=== PATIENT | female | born 1995 | race African-American/Black ===

== ENCOUNTER 2017-04-15 14:18 | Emergency (ER) | payer OTHER ==
[2017-04-15] MEDS ORDERED: NORMAL SALINE 1000 ML 1,000 ML IV ONE ×2 (14:44→19:59)
[2017-04-15] MEDS ORDERED: ONDANSETRON HCL INJ/PF 4 MG/2 ML SDV IV ONE (14:44)
[2017-04-15] MEDS ORDERED: KETOROLAC TROMETHAMINE INJ/PF 30 MG/1 ML SDV IV ONE (14:45)
--- NOTE | 2017-04-15 14:47 | ER Document Report ---
ED Medical Screen (RME) - General Chief Complaint: Abdominal Pain Stated Complaint: ABDOMINAL PAIN Time Seen by Provider: 04/15/17 14:32 Notes: Patient reports bilateral abdominal pain with nausea vomiting as well as cough cold and congestion TRAVEL OUTSIDE OF THE [place] IN LAST 30 DAYS: No - Related Data Allergies/Adverse Reactions: No Known Allergies Allergy (Unverified 04/15/17 14:33) Home Medications: Current Home Medications No Home Medications 04/15/17 [History] Past Medical History - Social History Chew tobacco use (# tins/day): No Frequency of alcohol use: Occasional Drug Abuse: None Renal/ Medical History: Denies: Hx Peritoneal Dialysis Physical Exam - Vital signs Vitals: Temp Pulse Resp BP Pulse Ox 98.3 F 123 H 14 120/67 97 04/15/17 14:24 04/15/17 14:24 04/15/17 14:24 04/15/17 14:24 04/15/17 14:24 Course - Vital Signs Vital signs: Temp Pulse Resp BP Pulse Ox 98.3 F 123 H 14 120/67 97 04/15/17 14:24 04/15/17 14:24 04/15/17 14:24 04/15/17 14:24 04/15/17 14:24
[2017-04-15 15:57] LABS: ABSOLUTE EOSINOPHILS # (AUTO) 0.1 10^3/uL (0.0-0.6); ABSOLUTE MONOCYTES (AUTO) 1.2 10^3/uL (0.1-1.4); ABSOLUTE NEUT (AUTO) 13.1 10^3/uL (1.7-8.2); BASOPHILS % (AUTO) 0.2 % (0-2); EOSINOPHILS % (AUTO) 0.6 % (0-6); HEMATOCRIT 38.6 % (36.0-47.0); HEMOGLOBIN 12.8 g/dL (12.0-15.5); LYMPHOCYTES % (AUTO) 6.7 % (13-45); MEAN CORPUSCULAR HEMOGLOBIN 28.9 pg (27.0-33.4); MEAN CORPUSCULAR HGB CONC 33.1 g/dL (32.0-36.0); MEAN CORPUSCULAR VOLUME 87 fl (80-97); MONOCYTES % (AUTO) 7.6 % (3-13); PLATELET COUNT 259 10^3/uL (150-450); RED BLOOD COUNT 4.43 10^6/uL (3.72-5.28); RED CELL DISTRIBUTION WIDTH 13.4 % (11.5-14.0); SEGMENTED NEUTROPHILS % (AUTO) 84.9 % (42-78); TOTAL CELLS COUNTED % (AUTO) 100 %; WHITE BLOOD COUNT 15.4 10^3/uL (4.0-10.5)
[2017-04-15 15:59] LABS: VENOUS BLOOD BASE EXCESS -2.3 mmol/L; VENOUS BLOOD HCO3 23.3 mmol/L (20-32); VENOUS BLOOD PCO2 42.9 mmHg (35-63); VENOUS BLOOD PH 7.35 (7.30-7.42)
[2017-04-15 16:07] LABS: APPEARANCE,URINE CLEAR; BILIRUBIN,URINE NEGATIVE (NEGATIVE); COLOR,URINE YELLOW; GLUCOSE, URINE NEGATIVE (NEGATIVE); KETONES,URINE TRACE mg/dL (NEGATIVE); LEUKOCYTE ESTERASE,URINE NEGATIVE (NEGATIVE); NITRITE,URINE NEGATIVE (NEGATIVE); PROTEIN,URINE NEGATIVE (NEGATIVE); URINE SPECIFIC GRAVITY 1.027
[2017-04-15 16:15] LABS: ALANINE AMINOTRANSFERASE 26 U/L (9-52); ALBUMIN 4.6 g/dL (3.5-5.0); ALKALINE PHOSPHATASE 58 U/L (38-126); ANION GAP 12 (5-19); ASPARTATE AMINO TRANSFERASE 20 U/L (14-36); BILIRUBIN,DIRECT 0.3 mg/dL (0.0-0.4); BILIRUBIN,TOTAL 0.8 mg/dL (0.2-1.3); BLOOD UREA NITROGEN 11 mg/dL (7-20); CALCIUM 9.9 mg/dL (8.4-10.2); CARBON DIOXIDE 25 mmol/L (22-30); CHLORIDE 104 mmol/L (98-107); GLUCOSE 93 mg/dL (75-110); SODIUM 140.8 mmol/L (137-145)
--- NOTE | 2017-04-15 17:05 | RADIOLOGY REPORT (SQ) ---
EXAM DESCRIPTION: CHEST PA/LAT COMPLETED DATE/TIME: 04/15/2017 4:55 pm REASON FOR STUDY: cough/congest COMPARISON: None. EXAM PARAMETERS: NUMBER OF VIEWS: two views TECHNIQUE: Digital Frontal and Lateral radiographic views of the chest acquired. RADIATION DOSE: NA LIMITATIONS: none FINDINGS: LUNGS AND PLEURA: No opacities, masses or pneumothorax. No pleural effusion. MEDIASTINUM AND HILAR STRUCTURES: No masses or contour abnormalities. HEART AND VASCULAR STRUCTURES: Heart normal size. No evidence for failure. BONES: Moderate scoliosis. No acute findings. HARDWARE: None in the chest. OTHER: No other significant finding. IMPRESSION: MODERATE SCOLIOSIS. NO ACUTE CARDIOPULMONARY PROCESS. TECHNICAL DOCUMENTATION: JOB ID: [id number] [employer]- All Rights Reserved
--- NOTE | 2017-04-15 19:46 | ER Document Report ---
ED GI/ - General Chief Complaint: Abdominal Pain Stated Complaint: ABDOMINAL PAIN Time Seen by Provider: 04/15/17 14:32 Mode of Arrival: Ambulatory Information source: Patient TRAVEL OUTSIDE OF THE [place] IN LAST 30 DAYS: No - HPI Notes: 04/15/17 20:28 22-year-old lady with past medical history of irregular cycles as well as menorrhagia and dysmenorrhea who presented today for evaluation of lower abdominal pain. Patient reported that she started having her cycle yesterday and since then has been having worsening abdominal pain described as cramping, constant, localized to the bilateral lower quadrants, severity of symptoms is 10 out of 10. Patient took Tylenol as well as Motrin with no significant improvement of her symptoms. Patient denies any fevers, chills, nausea or vomiting. Patient does have vaginal bleeding today with approximately already changed of 8 tampons. Patient denies any recent sexual activity or prior history of sexual transmitted infection. - Related Data Allergies/Adverse Reactions: No Known Allergies Allergy (Unverified 04/15/17 14:33) Past Medical History - General Information source: Patient - Social History Smoking Status: Never Smoker Chew tobacco use (# tins/day): No Frequency of alcohol use: Occasional Drug Abuse: None Family History: Reviewed & Not Pertinent Patient has suicidal ideation: No Patient has homicidal ideation: No Renal/ Medical History: Denies: Hx Peritoneal Dialysis Review of Systems - Review of Systems Notes: REVIEW OF SYSTEMS: CONSTITUTIONAL: -fevers, -chills EENT: -eye pain, -difficulty swallowing, -nasal congestion CARDIOVASCULAR: -chest pain, -syncope. RESPIRATORY: -cough, -SOB GASTROINTESTINAL: + Abdominal pain, -nausea, -vomiting, -diarrhea GENITOURINARY: -dysuria, -hematuria. + Vaginal bleeding MUSCULOSKELETAL: +back pain, -neck pain SKIN: -rash or skin lesions. HEMATOLOGIC: -easy bruising or bleeding. LYMPHATIC: -swollen, enlarged glands. NEUROLOGICAL: -altered mental status or loss of consciousness, -headache, - neurologic symptoms PSYCHIATRIC: -anxiety, -depression. ALL OTHER SYSTEMS REVIEWED AND NEGATIVE. Physical Exam - Vital signs Vitals: Temp Pulse Resp BP Pulse Ox 98.3 F 123 H 14 120/67 97 04/15/17 14:24 04/15/17 14:24 04/15/17 14:24 04/15/17 14:24 04/15/17 14:24 - Notes Notes: Reviewed vital signs and nursing note as charted by RN. CONSTITUTIONAL: Alert and oriented HEAD: Normocephalic; atraumatic EYES: PERRL; Conjunctivae clear, sclerae non-icteric ENT: normal nose; no rhinorrhea; moist mucous membranes; pharynx without lesions noted NECK: Supple without meningismus; non-tender; no cervical lymphadenopathy, no masses CARD: Tachycardia, no murmurs, no clicks, no rubs, no gallops; symmetric distal pulses RESP: Normal chest excursion without splinting or tachypnea; breath sounds clear and equal bilaterally ABD/GI: Normal bowel sounds; non-distended; rigid, tenderness to palpation throughout the abdomen BACK: The back appears normal and is non-tender to palpation EXT: Normal ROM in all joints; non-tender to palpation; no cyanosis, no effusions, no edema SKIN: Normal color for age and race; warm; dry; good turgor; capillary refill < 2 seconds; no acute lesions noted NEURO: .Cranial nerves 3-12 intact. Motor strength 5/5 bilaterally. Sensation intact to touch bilaterally. No pronator drift. Finger to nose intact bilaterally PSYCH: The patient's mood and manner are appropriate. Grooming and personal hygiene are appropriate. Course - Re-evaluation Re-evalutation: 04/15/17 20:00 22-year-old with vaginal bleeding as well as lower abdominal pain Differential diagnoses includes menorrhagia, dysmenorrhea, possible intra- abdominal infection such as appendicitis, small bowel obstruction, acute cystitis, pyelonephritis, , ectopic will obtain basic lab work including CBC, CMP, urinalysis, urine test We will give patient IV Toradol as well as IV fluids Reassess Reassessment 8:30 PM Patient has persistent pain despite of medications, patient has leukocytosis, high concern for possible intra-abdominal infection We will obtain CT scan of her abdomen and pelvis with contrast We will continue IV fluids as well as pain management with morphine Reassess 04/15/17 21:53 Reassessment 9:[address] scan does not show any acute intra-abdominal infection, perforation or any other surgical condition Patient does have multiple ovarian cysts At this point will obtain pelvic ultrasound to rule out hemorrhagic cyst versus torsion Continue pain management Reassess patient 01/16/18 00:44 Reassessment 12:40 AM Ultrasound with large bilateral ovarian cysts, no obvious torsion I have consulted [facility] e commerce solution architect, Dr. 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 - Vital Signs Vital signs: Temp Pulse Resp BP Pulse Ox 99.1 F 102 H 18 116/67 100 04/15/17 20:00 04/15/17 20:00 04/15/17 20:00 04/15/17 20:00 04/15/17 20:00 - Laboratory Result Diagrams: 04/15/17 15:35 04/15/17 15:35 Laboratory results interpreted by me: 04/15/17 04/15/17 15:35 15:35 WBC 15.4 H Seg Neutrophils % 84.9 H Lymphocytes % 6.7 L Absolute Neutrophils 13.1 H Urine Ketones TRACE H Urine Blood MODERATE H Urine Urobilinogen 4.0 H Discharge - Discharge Clinical Impression: Ovarian cyst, Pelvic pain Condition: Stable Disposition: HOME, SELF-CARE Instructions: Ovarian Cyst ([facility]) Additional Instructions: Please come back if you have worsening abdominal pain, nausea vomiting, fevers or chills Please avoid strenuous physical activity until you are cleared by [facility] doctors Please take your pain medications as prescribed Please follow-up with Dr. Jean, [facility] in 24-48 hours Prescriptions: Hydrocodone/Acetaminophen [[place] 5-325 mg Tabs (6 Tab/ER Disp)] 1 tab PO Q4 6 Days Ibuprofen [Motrin 600 Mg Tablet] 600 mg PO TID #15 tablet Referrals: NICHOLAS JEAN MD [ACTIVE STAFF] - Follow up as needed
[2017-04-15] MEDS ORDERED: MORPHINE SULFATE 10 MG/ML INJ IV ONE ×2 (20:01→21:54)
[2017-04-15 20:16] VITALS: BP 116/67
--- NOTE | 2017-04-15 20:42 | RADIOLOGY REPORT (SQ) ---
EXAM DESCRIPTION: CT ABD/PELVIS WITH IV ONLY COMPLETED DATE/TIME: 04/15/2017 8:31 pm REASON FOR STUDY: abdominal pain, leukocytosis, generalized COMPARISON: None. TECHNIQUE: CT scan of the abdomen and pelvis performed using helical scanning technique with dynamic intravenous contrast injection. No oral contrast. Images reviewed with lung, soft tissue, and bone windows. Reconstructed coronal and sagittal MPR images reviewed. Delayed images for evaluation of the urinary system also acquired. All images stored on PACS. All CT scanners at this facility use dose modulation, iterative reconstruction, and/or weight based d osing when appropriate to reduce radiation dose to as low as reasonably achievable (ALARA). [facility]: Dose Right [facility]: CareDose [facility]: Dose Right [facility]: Teradose 4D [facility]: [employer] CONTRAST TYPE AND DOSE: contrast/concentration: Isovue 370.00 mg/ml; Total Contrast Delivered: 64.0 ml; Total Saline Delivered: 40.1 ml RENAL FUNCTION: BUN 11 creatinine 0.72. RADIATION DOSE: CT Rad equipment meets quality standard of care and radiation dose reduction techniq ues were employed. CTDIvol: 4.9 - 5.4 mGy. DLP: 514 mGy-cm.. LIMITATIONS: None. FINDINGS: LOWER CHEST: No significant findings. No nodules or infiltrates. LIVER: Normal size. No masses. No dilated ducts. SPLEEN: Normal size. No focal lesions. PANCREAS: No masses. No significant calcifications. No adjacent inflammation or peripancreatic fluid collections. Pancreatic duct not dilated. GALLBLADDER: No identified stones by CT criteria. No inflammatory changes to suggest cholecystitis. ADRENAL GLANDS: No significant masses or asymmetry. RIGHT KIDNEY AND URETER: No solid masses. No significant calcifications. Duplicated collecting sy stem and ureter. No hydronephrosis or hydroureter. LEFT KIDNEY AND URETER: No solid masses. No significant calcifications. No hydronephrosis or hydr oureter. AORTA AND VESSELS: No aneurysm. No dissection. Renal arteries, SMA, celiac without stenosis. RETROPERITONEUM: No retroperitoneal adenopathy, hemorrhage or masses. BOWEL AND PERITONEAL CAVITY: No masses or inflammatory changes. No free fluid or peritoneal masses. APPENDIX: Not visualized. PELVIS: Large cystic lesions, on the right measuring 5 x 9 cm and on the left measuring 5 x 6 cm. Th e left side lesion is complex with septations and solid components. No free fluid. Normal bladder. ABDOMINAL WALL: No masses. No hernias. BONES: No significant or acute findings. OTHER: No other significant finding. IMPRESSION: 1. LARGE CYSTIC LESIONS IN THE PELVIS PRESUMABLY OVARIAN. LEFT-SIDED LESION APPEARS COMPLEX. 2. NO OTHER SIGNIFICANT OR ACUTE FINDING IN THE ABDOMEN OR PELVIS ON CT SCAN WITH IV CONTRAST. TECHNICAL DOCUMENTATION: JOB ID: [id number] Quality ID # [id number]: Final reports with documentation of one or more dose reduction techniques (e.g., Au tomated exposure control, adjustment of the mA and/or kV according to patient size, use of iterative reconstruction technique) 2010 [employer]- All Rights Reserved
--- NOTE | 2017-04-15 23:43 | RADIOLOGY REPORT (SQ) ---
EXAM DESCRIPTION: U/S NON OB PEL TV W/DOPPLER CLINICAL HISTORY: 22 years, Female, ovarian torsion, hemorrhagic cyst LMP: 04/14/2018. COMPARISON: CT, same day. TECHNIQUE: Transvaginal. LIMITATIONS: None. FINDINGS: 9.2 x 7.4 x 6.2 cm complex cystic hypoechoic mass of the right ovary; peripheral vascularity demonstrate. 6.9 x 5.2 x 4.9 cm complex left adnexal lesion; some peripheral vascularity demonstrated. No significant free fluid. 9.2 cm uterus, 0.7 cm endometrial stripe thickness, 3.6 cm cervical length. IMPRESSION: Indeterminate, probably benign bilateral adnexal masses measure 9.2 cm on the right and 6.9 cm on the left. Differential diagnosis includes ovarian neoplasm. The lesions are at risk for ovarian torsion. Recommend MRI with IV contrast and/or COOK HELPER PASTRY surgical evaluation. 2011 [employer]- All Rights Reserved
[2017-04-16] MEDS ORDERED: HYDROCODONE/ACETAMINOPHEN 5-325 MG (6 TAB/ER DISP) PO PRN (01:25)
== END 2017-04-16 01:35 | disposition home or self-care (01) ==
LOC: ER 14:18
DX: N83.202 Unspecified ovarian cyst, left side (principal); N83.201 Unspecified ovarian cyst, right side; D72.829 Elevated white blood cell count, unspecified; R10.2 Pelvic and perineal pain
CPT/HCPCS: 96376; 99284; 96361; 96374; 96375; 36415; 87040; 87086; 85025; 81025; 80053; 81001; 82803; 83605; 71046; 76830; 93976; 74177; J1885; J2270; J2405; J7030

== ENCOUNTER → 2017-05-03 | Outpatient (CLI) | payer OTHER ==
--- NOTE | 2017-05-03 14:57 | WOMENS IMAGING REPORT ---
EXAM DESCRIPTION: U/S PELVIS NON-OB LIMITED; TRANSVAGINAL ULTRASOUND COMPLETED DATE/TIME: 05/03/2017 2:32 pm REASON FOR STUDY: SALPINGITIS AND OOPHORITIS N70.93 SALPINGITIS AND OOPHORITIS, UNSPECIFIED COMPARISON: CT abdomen pelvis 04/15/2017 Pelvic ultrasound 04/15/2017 TECHNIQUE: Dynamic and static grayscale images acquired of the pelvis via transabdominal and transva ginal approach and recorded on PACS. Additional selected color Doppler and spectral images recorded. LIMITATIONS: None. FINDINGS: UTERUS: Contour normal. No mass. Uterus measures 7.8 x 3.6 x 5.0 cm in size. ENDOMETRIAL STRIPE: No focal or generalized thickening. No masses. Endometrial stripe 17 mm in thick ness CERVIX: No nabothian cysts. RIGHT OVARY: The right ovary measures 5.6 x 4.7 x 2.7 cm in size. There is a 3 x 1.5 cm cyst, and 1. 7 x 1.4 cm cyst, significantly smaller than on prior studies from 04/15/2017. RIGHT OVARY DOPPLER: Normal right ovary color flow. LEFT OVARY: Left ovary measures 6.5 x 4 x 5.1 cm in size. There is a mixed echogenicity complex cyst probably a hemorrhagic cyst, measuring 2.5 x 2.6 cm. A second mixed echogenicity probable hemorrhag ic cyst is present measuring 3.7 x 2 cm in size. LEFT OVARY DOPPLER: Normal left ovary color flow. FREE FLUID: None noted. OTHER: No other significant finding. IMPRESSION: Decrease in size of right ovarian cysts compared to studies from 04/15/2017. Decrease in size of probable left ovarian hemorrhagic cysts, compared to studies from 04/15/2017. TECHNICAL DOCUMENTATION: JOB ID: [id number] [email or web address]- All Rights Reserved
== END ==
LOC: WI 06:57
PROVIDERS: ATTEND Nurse Practitioner
DX: N70.93 Salpingitis and oophoritis, unspecified (principal); N83.292 Other ovarian cyst, left side; N83.291 Other ovarian cyst, right side
CPT/HCPCS: 76830; 76857

== ENCOUNTER 2018-12-09 11:07 | Emergency (ER) | payer OTHER ==
[2018-12-09] MEDS ORDERED: DIPHENHYDRAMINE HCL 25 MG CAPSULE PO ONE (12:28)
[2018-12-09] MEDS ORDERED: FAMOTIDINE 20 MG TABLET PO ONE (12:28)
[2018-12-09] MEDS ORDERED: PREDNISONE 20 MG TABLET PO ONE (12:28)
--- NOTE | 2018-12-09 12:32 | ER Document Report ---
ED Medical Screen (RME) - General Chief Complaint: Allergic Reaction Stated Complaint: POSSIBLE ALLERGIC REACTION Time Seen by Provider: 12/09/18 12:24 Primary Care Provider: LEMUEL FONG NP [Primary Care Provider] - Follow up as needed Mode of Arrival: Ambulatory Information source: Patient Notes: Patient is an otherwise healthy 23-year-old female presenting with multiple complaints today. Patient reports she believes she is having an allergic reaction. She is unsure what she could be allergic to. She reports yesterday she had lip swelling and swelling of the right side of her face. She reports she took Benadryl and the symptoms resolved. She states this morning she woke up again feeling like her lip was swelling. She also complains of sore throat and chills. She reports mild difficulty swallowing. She is speaking in full complete sentences and swallowing her secretions without difficulty. Exam: Mild bilateral tonsillar swelling without exudates. No obvious lip swelling noted on exam. I have greeted and performed a rapid initial assessment of this patient. A comprehensive ED assessment and evaluation of the patient, analysis of test re sults and completion of the medical decision making process will be conducted by additional ED providers. I have specifically instructed the patient or family members with the patient to immediately return to any nursing staff should anything change in the patient's condition or with their chief complaint. This medical record was dictated with voice recognizing software. There may be grammatical, syntax errors that are unintended. TRAVEL OUTSIDE OF THE [place] IN LAST 30 DAYS: No - Related Data Allergies/Adverse Reactions: No Known Allergies Allergy (Verified 12/09/18 11:08) Past Medical History Renal/ Medical History: Denies: Hx Peritoneal Dialysis Physical Exam - Vital signs Vitals: Temp Pulse Resp BP Pulse Ox 99.4 F 94 16 107/70 97 12/09/18 11:13 12/09/18 11:13 12/09/18 11:13 12/09/18 11:13 12/09/18 11:13 Course - Vital Signs Vital signs: Temp Pulse Resp BP Pulse Ox 99.4 F 94 16 107/70 97 12/09/18 11:13 12/09/18 11:13 12/09/18 11:13 12/09/18 11:13 12/09/18 11:13 Doctor's Discharge - Discharge Referrals: LEMUEL FONG NP [Primary Care Provider] - Follow up as needed
--- NOTE | 2018-12-09 14:32 | ER Document Report ---
ED General - General Chief Complaint: Allergic Reaction Stated Complaint: POSSIBLE ALLERGIC REACTION Time Seen by Provider: 12/09/18 12:24 Primary Care Provider: LEMUEL FONG NP [Primary Care Provider] - Follow up as needed Mode of Arrival: Ambulatory TRAVEL OUTSIDE OF THE [place] IN LAST 30 DAYS: No - HPI Notes: patient states she is having an allergic reaction. She states that yesterday she noticed that her throat was hurting and she felt that her lips were swollen. She states that she felt got worse today so she came to the hospital. She does have pain in the back of her throat. It is worse with swallowing and better with rest. It is moderate. It is intermittent. It does not radiate. She has had some fevers and chills. No sinus congestion or cough. No rashes. No trouble breathing. She denies any new exposures. - Related Data Allergies/Adverse Reactions: No Known Allergies Allergy (Verified 12/09/18 11:08) Past Medical History - General Information source: Patient - Social History Smoking Status: Never Smoker Chew tobacco use (# tins/day): No Frequency of alcohol use: Social Drug Abuse: None Family History: Reviewed & Not Pertinent Patient has suicidal ideation: No Patient has homicidal ideation: No Renal/ Medical History: Denies: Hx Peritoneal Dialysis Review of Systems - Review of Systems Constitutional: Chills, Fever, Malaise Cardiovascular: denies: Chest pain, Syncope Respiratory: denies: Cough, Short of breath Gastrointestinal: denies: Diarrhea, Vomiting -: Yes All other systems reviewed and negative Physical Exam - Vital signs Vitals: Temp Pulse Resp BP Pulse Ox 99.4 F 94 16 107/70 97 12/09/18 11:13 12/09/18 11:13 12/09/18 11:13 12/09/18 11:13 12/09/18 11:13 Interpretation: Normal - General General appearance: Appears well, Alert - HEENT Head: Normocephalic, Atraumatic Eyes: Normal Pupils: PERRL Mouth/Lips: Normal Mucous membranes: Normal Pharynx: Erythema, Other - Right tonsil is erythematous and hypertrophied. It does have several lesions that appear most consistent with a viral stomatitis. The lesions do not look white or exudative. It does not appear consistent with mono or strep classically. It does seem to be more of a viral lesion. - Respiratory Respiratory status: No respiratory distress Chest status: Nontender Breath sounds: Normal Chest palpation: Normal - Cardiovascular Rhythm: Regular Heart sounds: Normal auscultation Murmur: No - Abdominal Inspection: Normal Distension: No distension Bowel sounds: Normal Tenderness: Nontender Organomegaly: No organomegaly - Back Back: Normal, Nontender - Extremities General upper extremity: Normal inspection, Nontender, Normal color, Normal ROM, Normal temperature General lower extremity: Normal inspection, Nontender, Normal color, Normal ROM, Normal temperature, Normal weight bearing. No: Jazmine's sign - Neurological Neuro grossly intact: Yes Cognition: Normal Orientation: AAOx4 [place] Coma Scale Eye Opening: Spontaneous Amy Coma Scale Verbal: Oriented Amy Coma Scale Motor: Obeys Commands [place] Coma Scale Total: 15 Speech: Normal Motor strength normal: LUE, RUE, LLE, RLE Sensory: Normal - Psychological Associated symptoms: Normal affect, Normal mood - Skin Skin Temperature: Warm Skin Moisture: Dry Skin Color: Normal Course - Re-evaluation Re-evalutation: 12/09/18 14:34 Patient's lesions on the right tonsil do appear most consistent with a viral stomatitis of the tonsil. They are not white or exudative such as classically seen with strep or mono. However in the off chance that these are bacterial I will place the patient on antibiotics. - Vital Signs Vital signs: Temp Pulse Resp BP Pulse Ox 99.4 F 94 16 107/70 97 12/09/18 11:13 12/09/18 11:13 12/09/18 11:13 12/09/18 11:13 12/09/18 11:13 - Laboratory Laboratory results interpreted by me: 12/09/18 14:27 Laboratory 12/09/18 12:27 Group A Strep Rapid NEGATIVE Discharge - Discharge Clinical Impression: Tonsillitis with exudate Condition: Stable Disposition: HOME, SELF-CARE Instructions: Tonsillitis ([facility]) Additional Instructions: Call your provider first thing in the morning to arrange for a recheck Prescriptions: Amoxicillin 1 tab PO TID #30 tab Tramadol HCl [Ultram] 50 mg PO Q6 PRN 3 Days #12 tablet PRN Reason: Referrals: LEMUEL FONG NP [Primary Care Provider] - Follow up as needed
[2018-12-09 15:17] VITALS: BP 102/57
== END 2018-12-09 15:20 | disposition home or self-care (01) ==
LOC: ER 11:07
DX: J03.90 Acute tonsillitis, unspecified (principal); R50.9 Fever, unspecified; R53.81 Other malaise
CPT/HCPCS: 99283; 87070; 87880; J7512

== ENCOUNTER 2018-12-18 00:45 | Emergency (ER) | payer OTHER ==
[2018-12-18 01:45] LABS: APPEARANCE,URINE CLEAR; BILIRUBIN,URINE NEGATIVE (NEGATIVE); COLOR,URINE STRAW; GLUCOSE, URINE NEGATIVE (NEGATIVE); KETONES,URINE NEGATIVE (NEGATIVE); LEUKOCYTE ESTERASE,URINE NEGATIVE (NEGATIVE); NITRITE,URINE NEGATIVE (NEGATIVE); PROTEIN,URINE NEGATIVE (NEGATIVE); UROBILINOGEN,URINE NEGATIVE mg/dL (<2.0)
--- NOTE | 2018-12-18 02:05 | ER Document Report ---
HPI - HPI Patient complains to provider of: urinary frequency, vaginal discharge Time Seen by Provider: 12/18/18 02:00 Pain Level: 3 Context: 23 Yr old female patient, with the listed pmh, here for abdominal pain x days. No abdominal surgeries. No history of ovarian cysts, fibroids, endometriosis, or renal stones. Normal bowel movements. No UTI symptoms. No URI symptoms. No recent antibiotics or steroids. No history of diabetes or asthma. No vaginal discharge/complaints/lesions or concerns for STDs and does not want a pelvic exam. No ripping or tearing sensation. Hasn't taken anything for her symptoms. No excessive NSAID use, Tylenol use, or EtOH. No prior history of gallbladder disease, pancreatitis, ulcers, GI bleed, GERD, IBS, Crohn's, or UC. no change in color or caliber or stool. no blood thinners. no fall or trauma. no other associated sx. - REPRODUCTIVE Reproductive: DENIES: : Past Medical History - Social History Smoking Status: Unknown if Ever Smoked Family History: Reviewed & Not Pertinent Patient has suicidal ideation: No Patient has homicidal ideation: No Renal/ Medical History: Denies: Hx Peritoneal Dialysis Vertical Provider Document - CONSTITUTIONAL Notes: >>>> PHYSICAL_EXAM: GENERAL_APPEARANCE: well_nourished, alert, cooperative, no_acute_distress, no_obvious_discomfort. Pleasant, female, smiling, speaking in full sentences, in no sign of pain or resp distress, easily sitting up VITALS: reviewed, see vital signs table. HEAD: normocephalic, atraumatic. no rubio signs. no raccoon eyes. EYES: PERRL, EOMI, (-)scleral icterus. NOSE: no_nasal_discharge. MOUTH: (-)decreased moisture. THROAT: no_tonsilar_inflammation/hypertrophy/exudate NECK: supple, no_neck_tenderness, full rom. full strength. no meningeal signs. no sign of central cord syndrome BACK: no midline_back_tenderness. no step offs or deformities CHEST_WALL: no_chest_tenderness. LUNGS: no_wheezing, (-)accessory muscle use, good air exchange bilateral. HEART: normal_rate, normal_rhythm, ABDOMEN: normal_BS, soft, abdomen-diffuse, non-tender, (-)guarding, (- )rebound, no distension or peritoneal signs. neg murphys. neg mcburneys. no cva tenderness. neg heel strike. neg obturator. neg psoas. neg rovsign. GENITALS: no_ulcers_or_lesions on the genitals, no_lacerations on the genitals, PELVIC: (-)tender uterus, left_and_right adnexa non-tender, (-)CMT, (-)active bleeding, (-)discharge, no_tenderness no cervcicitis, normal os, pt consented to exam. exam without incident. ed nurse __ at bedside during entire exam as senior ui ux designer. RECTAL: deferred EXTREMITIES: strength 5/5 in all_extremities, good pulses in all_extremities, no_edema, no_swelling\tenderness. full rom. normal gait. 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 brisk cap refill. SKIN: warm, dry, good_color, no_rash. no grossly visible overlying skin changes to suggest trauma NEURO: motor_intact, sensory_intact. cranial nerves 2-12 intact, cerebellar fxn intact MENTAL_STATUS: normal_affect, speech_clear, oriented_X_3, responds_appropriately to questions. - INFECTION CONTROL TRAVEL OUTSIDE OF THE [place] IN LAST 30 DAYS: No Course - Re-evaluation Re-evalutation: 12/18/18 04:36 Pt here for . advised to f/u with pcp in 1-2 days. return for any worsening symptoms. vss. well appearing. satting well on ra. neurononfocal. pt understands and agrees to plan. On reexam, pt improved with tx listed. remained stable. nontoxic. well appearing. pain controlled. tolerating po. requesting to go home. case discussed with ER Attending, , who directed and agrees with plan of care and advised no further workup indicated at this time and pt is stable for d c home with close f/u with pcp/specialist. Documentation achieved through voice recording which may lead to some occasional accidental typographical errors. Extensive efforts have been made to proof read documentation to make sure these are the least as possible. Category Date Time Status Pelvic Setup (ED) NOW Care 12/18/18 02:05 Completed [facility] ENDO [facility]HOUSE [MO] Stat Lab 12/18/18 03:30 Received URINE CULTURE [MC] Stat Lab 12/18/18 01:10 Received Urine [HCG QUALITATIVE, URINE] [URIN] Stat Lab 12/18/18 01:10 Completed Urine [URINALYSIS] [URIN] Stat Lab 12/18/18 01:10 Completed WET [place] [MO] Stat Lab 12/18/18 03:30 Completed - Vital Signs Vital signs: Temp Pulse Resp BP Pulse Ox 97.4 F 69 16 107/67 99 12/18/18 00:51 12/18/18 00:51 12/18/18 00:51 12/18/18 00:51 12/18/18 00:51 12/18/18 04:36 Temp Pulse Resp BP Pulse Ox 12/18/18 00:51 97.4 F 69 16 107/67 99 - Laboratory Laboratory results interpreted by me: 12/18/18 01:10 Urine Blood SMALL H 12/18/18 04:36 Labs- Entire Visit 12/18/18 12/18/18 01:10 03:30 Urine Color STRAW Urine Appearance CLEAR Urine pH 7.0 Ur Specific [place]cano 1.010 Urine Protein NEGATIVE Urine Glucose (UA) NEGATIVE Urine Ketones NEGATIVE Urine Blood SMALL H Urine Nitrite NEGATIVE Urine Bilirubin NEGATIVE Urine Urobilinogen NEGATIVE Ur Leukocyte Esterase NEGATIVE Urine WBC (Auto) 1 Urine RBC (Auto) 0 Urine Bacteria (Auto) 3+ Squamous Epi Cells Auto 4 Urine Mucus (Auto) RARE Urine Ascorbic Acid NEGATIVE Urine HCG, Qual NEGATIVE Trichomonas (Wet Prep) NO TRICHOMONAS SEEN Vaginal WBC FEW WBCS SEEN Vaginal RBC NO RBCS SEEN Vaginal Yeast NO YEAST SEEN Discharge - Discharge Clinical Impression: Vaginal discharge Condition: Good Disposition: HOME, SELF-CARE Instructions: Vaginitis ([facility]) Additional Instructions: Follow-up with PCP/CLERICAL PROOFREADER/health department in 1 to 2 days. Return for any worsening symptoms. tylenol or motrin as needed for any pain or fever if not allergic. take the medication as prescribed. we will call you with any abnormal results that require change in plan of care as discussed. no intercourse if you have any symptoms, have your partner tested/treated before engaging in any intercourse. condom use for safe sex. f/u with the health dept for any further desired std testing. Referrals: LEMUEL FONG NP [Primary Care Provider] - Follow up as needed
[2018-12-18 03:49] LABS: RBCS (WET MOUNT) NO RBCS SEEN; T.VAGINALIS (WET MOUNT) NO TRICHOMONAS SEEN; WBCS (WET MOUNT) FEW WBCS SEEN; YEAST (WET MOUNT) NO YEAST SEEN
[2018-12-18] MEDS ORDERED: AZITHROMYCIN 250 MG TABLET PO ONE (04:51)
[2018-12-18] MEDS ORDERED: LIDOCAINE 1% INJ-PF (10 MG/ML) 30 ML SDV NEB ONE (04:51)
[2018-12-18] MEDS ORDERED: CEFTRIAXONE INJ 250 MG VIAL IM ONE (04:51)
[2018-12-18 05:20] VITALS: BP 106/62
[2018-12-18 05:31] LABS: CHLAM PCR NOT DETECTED (NOT DETECT)
== END 2018-12-18 05:36 | disposition home or self-care (01) ==
LOC: ER 00:45
DX: N89.8 Other specified noninflammatory disorders of vagina (principal); R10.9 Unspecified abdominal pain
CPT/HCPCS: 99283; 96374; 87086; 87210; 81025; 81001; 87491; 87591; J3490; J0696

== ENCOUNTER 2019-05-23 18:35 | Emergency (ER) | payer OTHER ==
--- NOTE | 2019-05-23 19:09 | ER Document Report ---
ED Medical Screen (RME) - General Chief Complaint: Abdominal Pain Stated Complaint: ABDOMINAL PAIN Time Seen by Provider: 05/23/19 19:07 Primary Care Provider: LEMUEL FONG NP [Primary Care Provider] - Follow up as needed TRAVEL OUTSIDE OF THE [place] IN LAST 30 DAYS: No - HPI Notes: 05/23/19 19:08 Patient is a 24-year-old female no significant past medical history who presents complaining of mid abdominal pain that rates across her abdomen over the past week that is been relatively constant. The pain does not radiate. Patient states it is not lower pelvic and is not in her upper abdomen. She is able to eat and drink without difficulty. She is urinating normally and having normal bowel movements. Patient is currently on her menstrual cycle. Denies drug allergies. No surgical history to her abdomen. No fever, vomiting, diarrhea. I have treated and performed a rapid initial assessment of this patient. A comprehensive ED assessment and evaluation of the patient, analysis of test results and completion of medical decision making process will be conducted by additional ED providers. PHYSICAL EXAMINATION: GENERAL: Well-appearing, well-nourished and in no acute distress. A&Ox4. Answers questions appropriately. Abdomen: Limited exam in triage, there is mild tenderness noted across the mid abdomen. - Related Data Allergies/Adverse Reactions: No Known Allergies Allergy (Verified 05/23/19 19:01) Past Medical History - Social History Chew tobacco use (# tins/day): No Frequency of alcohol use: Rare Drug Abuse: None Renal/ Medical History: Denies: Hx Peritoneal Dialysis Physical Exam - Vital signs Vitals: Temp Pulse Resp BP Pulse Ox 98.3 F 79 16 104/66 97 05/23/19 18:52 05/23/19 18:52 05/23/19 18:52 05/23/19 18:52 05/23/19 18:52 Course - Vital Signs Vital signs: Temp Pulse Resp BP Pulse Ox 98.3 F 79 16 104/66 97 05/23/19 18:52 05/23/19 18:52 05/23/19 18:52 05/23/19 18:52 05/23/19 18:52 Doctor's Discharge - Discharge Referrals: LEMUEL FONG NP [Primary Care Provider] - Follow up as needed
[2019-05-23 19:48] LABS: ABSOLUTE EOSINOPHILS # (AUTO) 0.2 10^3/uL (0.0-0.6); ABSOLUTE MONOCYTES (AUTO) 0.3 10^3/uL (0.1-1.4); ABSOLUTE NEUT (AUTO) 3.6 10^3/uL (1.7-8.2); BASOPHILS % (AUTO) 0.5 % (0-2); EOSINOPHILS % (AUTO) 3.2 % (0-6); HEMATOCRIT 37.3 % (36.0-47.0); HEMOGLOBIN 12.6 g/dL (12.0-15.5); LYMPHOCYTES % (AUTO) 32.6 % (13-45); MEAN CORPUSCULAR HEMOGLOBIN 29.5 pg (27.0-33.4); MEAN CORPUSCULAR HGB CONC 33.7 g/dL (32.0-36.0); MEAN CORPUSCULAR VOLUME 88 fl (80-97); MONOCYTES % (AUTO) 5.5 % (3-13); PLATELET COUNT 241 10^3/uL (150-450); RED BLOOD COUNT 4.26 10^6/uL (3.72-5.28); RED CELL DISTRIBUTION WIDTH 13.3 % (11.5-14.0); SEGMENTED NEUTROPHILS % (AUTO) 58.2 % (42-78); TOTAL CELLS COUNTED % (AUTO) 100 %; WHITE BLOOD COUNT 6.3 10^3/uL (4.0-10.5)
[2019-05-23 19:51] LABS: APPEARANCE,URINE SLIGHTLY-CLOUDY; BILIRUBIN,URINE NEGATIVE (NEGATIVE); COLOR,URINE YELLOW; GLUCOSE, URINE NEGATIVE (NEGATIVE); KETONES,URINE NEGATIVE (NEGATIVE); PROTEIN,URINE NEGATIVE (NEGATIVE); UROBILINOGEN,URINE NEGATIVE mg/dL (<2.0)
[2019-05-23 20:03] LABS: ALBUMIN 4.3 g/dL (3.5-5.0); ALKALINE PHOSPHATASE 48 U/L (38-126); ANION GAP 8 (5-19); ASPARTATE AMINO TRANSFERASE 29 U/L (14-36); BILIRUBIN,DIRECT 0.3 mg/dL (0.0-0.4); BILIRUBIN,TOTAL 0.5 mg/dL (0.2-1.3); BLOOD UREA NITROGEN 16 mg/dL (7-20); CALCIUM 9.6 mg/dL (8.4-10.2); CARBON DIOXIDE 27 mmol/L (22-30); CHLORIDE 103 mmol/L (98-107); GLUCOSE 134 mg/dL (75-110); POTASSIUM 4.2 mmol/L (3.6-5.0)
[2019-05-23] MEDS ORDERED: PROMETHAZINE HCL 25 MG TABLET PO ONE (21:29)
[2019-05-23] MEDS ORDERED: OXYCODONE-ACETAMINOPHEN 5-325 MG TABLET PO ONE (21:29)
--- NOTE | 2019-05-23 21:31 | ER Document Report ---
ED GI/ - General Chief Complaint: Abdominal Pain Stated Complaint: ABDOMINAL PAIN Time Seen by Provider: 05/23/19 19:07 Primary Care Provider: [facility] [Provider Group] - 05/25/19 Notes: Patient is a 24-year-old female that comes emergency department for chief complaint of abdominal pain. She states this is been going on for most a week but has been more noticeable over the past couple of days, she has also started bleeding vaginally over the past couple of days. She states that she has a history of cysts, she states she had a "complicated one that I had to be transferred to [facility] for and was admitted for 2 weeks". She states she just wants to make sure that she is okay. She denies any surgeries, vaginal discharge, concerns of STD exposure, flank pain, dysuria, fever, nausea, vomit ing. TRAVEL OUTSIDE OF THE [place] IN LAST 30 DAYS: No - Related Data Allergies/Adverse Reactions: No Known Allergies Allergy (Verified 05/23/19 19:01) Past Medical History - General Information source: Patient - Social History Smoking Status: Never Smoker Chew tobacco use (# tins/day): No Frequency of alcohol use: Rare Drug Abuse: None Family History: Reviewed & Not Pertinent Patient has suicidal ideation: No Patient has homicidal ideation: No Renal/ Medical History: Denies: Hx Peritoneal Dialysis Review of Systems - Review of Systems Constitutional: No symptoms reported EENT: No symptoms reported Cardiovascular: No symptoms reported Respiratory: No symptoms reported Gastrointestinal: See HPI Genitourinary: No symptoms reported Female Genitourinary: See HPI Musculoskeletal: No symptoms reported Skin: No symptoms reported Hematologic/Lymphatic: No symptoms reported Neurological/Psychological: No symptoms reported Physical Exam - Vital signs Vitals: Temp Pulse Resp BP Pulse Ox 98.3 F 79 16 104/66 97 05/23/19 18:52 05/23/19 18:52 05/23/19 18:52 05/23/19 18:52 05/23/19 18:52 - Notes Notes: GENERAL: Alert, interacts well. No acute distress. HEAD: Normocephalic, atraumatic. EYES: Pupils equal, round, and reactive to light. Extraocular movements intact. ENT: Oral mucosa moist, tongue midline. Oropharynx unremarkable. Airway patent. LUNGS: Clear to auscultation bilaterally, no wheezes, rales, or rhonchi. No respiratory distress. HEART: Regular rate and rhythm. No murmur ABDOMEN: There is tenderness in the left lower abdomen and pelvic area. This is specific and she winces slightly. However the remaining abdomen is completely unremarkable. GENITOURINARY: Deferred EXTREMITIES: Moves all 4 extremities spontaneously. No edema, normal radial and dorsalis pedis pulses bilaterally. No cyanosis. BACK: no cervical, thoracic, lumbar midline tenderness. No saddle anesthesia, normal distal neurovascular exam. Moves all extremities in full range of motion. NEUROLOGICAL: Alert and oriented x3. Normal speech. Cranial nerves II through XII grossly intact. PSYCH: Normal affect, normal mood. SKIN: Warm, dry, normal turgor. No rashes or lesions noted. Course - Re-evaluation Re-evalutation: Patient indicates the pain is just below her umbilicus when asked about on exam the pain is in her left lower quadrant and pelvic area. Because of her history of cyst which I cannot get specific details about, location of pain, vaginal bleeding, ultrasound was ordered. Patient declines pelvic exam. CBC, chemistry unremarkable. Urinalysis shows some white blood cells but also squamous epithelials. Nonspecific without overt suprapubic tenderness. No flank pain or dysuria. Culture placed. Ultrasound showing complex cyst on the left ovary, possible endometrioma. No torsion. Recommendation is close follow-up. Discussed with patient. Provided with a copy of her report and referral to [facility]. Discussed details and return precautions. Patient states appreciation and agreement. Stable time of discharge. - Vital Signs Vital signs: Temp Pulse Resp BP Pulse Ox 97.5 F 61 15 119/69 97 05/24/19 00:09 05/24/19 00:09 05/24/19 00:09 05/24/19 00:09 05/24/19 00:09 - Laboratory Result Diagrams: 05/23/19 19:25 05/23/19 19:25 Laboratory results interpreted by me: 05/23/19 05/23/19 19: 19:25 Glucose 134 H Urine Blood LARGE H Leukocyte Esterase Rfl MODERATE H Discharge - Discharge Clinical Impression: Pelvic pain Condition: Stable Disposition: HOME, SELF-CARE Additional Instructions: You have a cyst on your ovary on the left side. This appears to be causing your pain. This does have an abnormal appearance and it is important that you obtain a follow-up ultrasound within 6 to 12 weeks with either your primary care or with the PERINATAL INSTRUCTOR referral to make sure this goes away. Please call the referral to set this up. Take the provided pain medication at night to help you sleep if needed, take the prescribed medication during the day if needed for pain and cramping. Return if you worsen including severe worsening pain, vomiting, fever, or any other concerning symptoms. Prescriptions: Ketorolac Tromethamine [Toradol 10 mg Tablet] 10 mg PO Q8HP PRN #24 tablet PRN Reason: Referrals: [facility] [Provider Group] - 05/25/19
--- NOTE | 2019-05-23 23:45 | RADIOLOGY REPORT (SQ) ---
EXAM DESCRIPTION: US PELVIS TRANSVAGINAL CLINICAL HISTORY: 24 years Female sharp left pelvic pain, bleeding, LMP 05/19/2019. COMPARISON: None TECHNIQUE: Transvaginal pelvic ultrasound was obtained for a total of 43 images. FINDINGS: The uterus measures 7.5 x 4.0 x 4.0 cm. The endometrial stripe measures 1.2 cm in thickness. The cervix measures approximately 2.4 cm in length. The right ovary measures 3.5 x 2.0 x 3.4 cm with normal follicles and normal color and spectral Doppler flow. The left ovary is mildly enlarged measuring 4.4 x 3.1 x 4.2 cm with normal color and spectral Doppler flow and contains a cyst measuring 3.7 x 2.2 x 3.0 cm. The cyst is complex with internal echoes and mild wall thickening. The cyst is unilocular with no internal flow. No free fluid collections are seen. IMPRESSION: There is a complex 3.7 cm left ovarian cyst perhaps representing an endometrioma or chocolate cyst. Recommend a follow-up exam in 6-12 weeks. Recommendations for f/u of complex cysts(abbreviated relevant portions)1: Endometrioma: < 7 cm: US f/u 6-12 weeks. If not removed, annual US. Pre-menopause: < 7 cm: US f/u 6-12 weeks. If unchanged, f/u with US or consider MR w/IVC. If these do not confirm endometrioma or dermoid, consider surgical evaluation. 1. Recommendations based upon the 2010 SRU Consensus Conference Statement on the Management of asymptomatic ovarian and adnexal cysts imaged at US. Radiology. 2009;256(3):943-54
[2019-05-24 00:11] VITALS: BP 119/69
== END 2019-05-24 00:11 | disposition home or self-care (01) ==
LOC: ER 18:35
DX: R10.2 Pelvic and perineal pain (principal); R10.9 Unspecified abdominal pain; N93.9 Abnormal uterine and vaginal bleeding, unspecified
CPT/HCPCS: 36415; 76830; 80053; 81001; 81025; 83690; 85025; 87086; 93976; 99284